=== PATIENT | female | born 1955 | race Caucasian/White ===

== ENCOUNTER → 2016-10-28 | Outpatient (CLI) | payer MEDICARE, OTHER ==
[~2016-10-28] MED LIST: ALBU18HF2 INH; ASPI-557 PO; CALC-732 PO; ENAL20TA PO; FENO54TA4 PO; FLUT1DIS5 ORAL INH; GABA300C PO; IPRA4AER PO; MINO50TA PO; MONT10TA22 PO; ONDA4TAB4 PO; ROSU40TA PO; TIOT18CA3 ORAL INH; TOPI25TA64 PO; TRIA1TAB93 PO
--- NOTE | 2016-10-28 09:12 | DI ---
Indication: ITS.REASON: J44.9 Chronic obstructive pulmonary disease, unspe; R52 RIB PAIN PROCEDURE: RIBS RIGHT: Encounter: Initial Comparison: None Findings/ Impression: No acute displaced rib fracture. Evidence of healed fractures involving the right fifth, sixth and seventh lateral ribs. .
--- NOTE | 2016-10-28 09:13 | DI ---
INDICATION: ITS.REASON: J44.9 Chronic obstructive pulmonary disease, unspe; R52 RIB PAIN PROCEDURE: CHEST 2-VIEWS UPRIGHT (PA \T\ LAT) Encounter: Initial COMPARISON: June 12, 2009 FINDINGS: Blunting of the right costophrenic angle, probably related pleural thickening. Evidence of hyperinflation and emphysema. No consolidative pneumonia, pleural effusion or pneumothorax. Cardiac silhouette is mildly enlarged but unchanged. Mediastinal contours are stable. Pulmonary vascularity appears normal. Lumbar spinal fusion hardware. Impression: Findings of COPD. No focal pneumonia. .
== END ==
LOC: IMA 08:30
PROVIDERS: ATTEND Physician Assistant
DX: J44.9 Chronic obstructive pulmonary disease, unspecified (principal); R07.81 Pleurodynia

== ENCOUNTER 2016-11-16 07:19 | Day surgery (SDC) | payer MEDICARE, OTHER ==
[~2016-11-16] VITALS: Ht 167.6 cm; Wt 107.3 kg
[2016-11-16] VITALS (28 sets, daily range): BP systolic 108–176; BP diastolic 59–111; PULSE 78–120; RESP 12–32; TEMP 96.9–97.8; O2SAT 89–95; Ht 167.6 cm; Wt 107.3 kg
[~2016-11-16 07:19] MED LIST changes: -ASPI-557 PO; -CALC-732 PO; -FENO54TA4 PO; +LIDOCAINE 1% (10mg/ml) 2ml SDV INJ ONE; +LR 1,000 ML IV SCH; -MINO50TA PO; -MONT10TA22 PO; +NORMAL SALINE 1,000 ML IV ONE; -ONDA4TAB4 PO; -ROSU40TA PO; -TIOT18CA3 ORAL INH
--- OUTSIDE RECORDS SUMMARY | 2016-11-16 07:23 | XMS REPORT | Referral Summary ---
Author Organization Unknown Address Unknown Phone Unavailable Care Team Providers Care Electric Refrigerator Servicer Name Role Phone Navjot Sampson JR Primary Care Physician [phone] Encounter [facility] [id number] Date(s): 07/23/14 - 07/23/14 [facility] [place] [id number] [place], [place] [address] Discharge Diagnosis: Ocular migraine Discharge Disposition: Home or Self Care Attending Physician: Trev Simeon MD Admitting Physician: Trev Simeon MD Vital Signs Most recent to 1 oldest [Reference Range]: Peripheral Pulse 88 bpm Rate [60-100 bpm] (07/23/14 9:41 AM) Blood Pressure 162/94 mmHg [90-140/60-90 mmHg] *HI* (07/23/14 9:41 AM) Problem List Condition Effective Dates Status Health Status Informant Allergic Active rhinitis(Confirmed) Benign essential Active hypertension (disorder)(Confirmed ) COPD (chronic Active obstructive pulmonary disease)(Confirmed) Renal cell Active cancer(Confirmed) Coronary artery Active disease(Confirmed) Peripheral Active neuropathy(Confirmed ) Hereditary and Active idiopathic peripheral neuropathy (disorder)(Confirmed ) Hyperlipidemia(Confi Active rmed) Migraine Active headache(Confirmed) Obesity(Confirmed) Active patient Osteopenia(Confirmed Active ) Pneumonia(Confirmed) 2009 Active Vitamin D deficiency Active (disorder)(Confirmed ) Allergies, Adverse Reactions, Alerts Substance Reaction Severity Status acetaminophen Active codeine Nausea Active iodine Active oxyCODONE Active penicillin Active sulfamethoxazole NAUSEA/VOMITTING Active Medications Advair Diskus 500 mcg-50 mcg inhalation powder 1 puffs, Inhalation, BID, 0 Refill(s) Start Date: 07/01/14 Status: Ordered aspirin 81 mg oral tablet 1 tabs, Oral, Daily, 0 Refill(s) Start Date: 07/01/14 Status: Ordered calcium gluconate 500 mg oral tablet 1 tabs, Oral, Daily, 0 Refill(s) Start Date: 07/01/14 Status: Ordered Combivent Respimat 1 puffs, Inhalation, QID, prn, 0 Refill(s) Start Date: 07/01/14 Status: Ordered Crestor 40 mg oral tablet 1 tabs, Oral, Daily, # 90 tabs, 0 Refill(s), Pharmacy: [facility], 1 tabs Oral Daily Start Date: 07/18/14 Status: Ordered enalapril 20 mg oral tablet 1 tabs, Oral, Daily, 0 Refill(s) Start Date: 07/01/14 Status: Ordered fenofibrate 54 mg oral tablet 1 tabs, Oral, Daily, # 30 tabs, 0 Refill(s), Pharmacy: [facility], 1 tabs Oral Daily Start Date: 07/18/14 Status: Ordered Maxzide-25 oral tablet 1 tabs, Oral, Daily, # 90 tabs, 1 Refill(s), Pharmacy: [place] [id number] Start Date: 07/01/14 Status: Ordered Neurontin 300 mg oral capsule 1 caps, Oral, TID, 0 Refill(s) Start Date: 07/01/14 Status: Ordered Singulair 10 mg oral tablet 1 tabs, Oral, qPM, 0 Refill(s) Start Date: 07/01/14 Status: Ordered Spiriva 18 mcg inhalation capsule 1 Each, Inhalation, Daily, use two inhalations of one capsule for each dose, # 30 Each, 0 Refill(s) Special Instructions: use two inhalations of one capsule for each dose Start Date: 07/01/14 Status: Ordered Ventolin HFA 90 mcg/inh inhalation aerosol 2 puffs, Inhalation, QID, # 3 Each, 1 Refill(s), Pharmacy: [facility], 2 puffs Inhalation QID Start Date: 07/01/14 Status: Ordered Zofran 4 mg oral tablet 1 tabs, Oral, q8hr, Nausea, # 30 tabs, 1 Refill(s), Pharmacy: [facility], 1 tabs Oral q8hr,PRN:Nausea Start Date: 07/01/14 Status: Ordered Results No data available for this section Immunizations Vaccine Date Refusal Reason tetanus/diphth/pertuss (Tdap) adult/adol 04/29/13 influenza virus vaccine, live 05/30/12 pneumococcal 13-valent conjugate vaccine 04/29/13 pneumococcal 23-polyvalent vaccine 07/21/00 Procedures Procedure Date Related Diagnosis Body Site Cholecystectomy H/O neck surgery H/O tubal ligation H/O: hysterectomy History of back surgery Social History Social History Type Response Smoking Status Current every day smoker; Type: Cigarettes; Type: E-Cigarette Assessment and Plan Extracted from: Title: Neurology initial Office Author: Trev Simeon MD Date: 07/23/14 Visit Note Assessment/Plan Ocular migraine Her symptoms are consistent with ocular migraines, however, epileptic seizures cannot be excluded I will start her on Topamax 25mg QHS x 1 week then 25mg BID and monitor for response. I educated her about side effects including kidney stones, somnolence, tingling in the hands and feet, and taste change. I will consider repeating EEG if no response and titrating Topamax up. If ineffective at higher doses (up to 100mg BID), I will consider other alternatives Time spent with the patient: 30min, >50% spent counseling the patient Return to clinic in4 months
--- OUTSIDE RECORDS SUMMARY | 2016-11-16 07:23 | XMS REPORT | Referral Summary ---
Author Author [facility] Organization [facility] Address Unknown Phone Unavailable Care Team Providers Care Geophysical Laboratory Supervisor Name Role Phone Jose Higgins Primary Care Physician [phone] Encounter [facility] Date(s): 03/18/15 - 03/18/15 [facility] [address] [place] [address] JARRED Henriquez [id number] Discharge Disposition: 01-Home or Self Care Attending Physician: Cristi Gaytan JR, MD Admitting Physician: Cristi Gaytan JR, MD Vital Signs No data available for this section Problem List Condition Effective Dates Status Health [...] Daily, # 90 tabs, 0 Refill(s), Pharmacy: [place] [address], 1 tabs Oral Daily Start Date: 07/18/14 Status: Ordered enalapril 20 mg oral tablet 1 tabs, Oral, Daily, 0 Refill(s) Start Date: 07/01/14 Status: Ordered fenofibrate 54 mg oral tablet 1 tabs, Oral, Daily, # 30 tabs, 0 Refill(s), Pharmacy: [place] [address], 1 tabs Oral Daily Start Date: 07/18/14 Status: Ordered Maxzide-25 oral tablet 1 tabs, Oral, Daily, # 90 tabs, 1 Refill(s), Pharmacy: [place] [address] Start Date: 07/01/14 Status: Ordered minocycline 50 mg oral tablet 1 tabs, Oral, Daily, refill x 2, # 30 tabs, 1 Refill(s), Pharmacy: [place] [address], 1 tabs Oral Daily,Instr:refill x 2 Start Date: 08/06/14 Stop Date: 11/04/14 Status: Ordered Neurontin 300 mg oral capsule 1 caps, Oral, TID, 0 Refill(s) Start Date: 07/01/14 Status: Ordered Singulair 10 mg oral tablet 1 tabs, Oral, qPM, 0 Refill(s) Start Date: 07/01/14 Status: Ordered Spiriva 18 mcg inhalation capsule 1 Each, Inhalation, Daily, use two inhalations of one capsule for each dose, # 30 Each, 0 Refill(s) Start Date: 07/01/14 Status: Ordered topiramate 25 mg oral tablet See Instructions, TAKE ONE TAB PO QAM, TAKE 2 TAB QHS, # 90 tabs, 2 Refill(s), Pharmacy: [facility], TAKE ONE TAB PO QAM, TAKE 2 TAB QHS Start Date: 09/19/14 Status: Ordered Ventolin HFA 90 mcg/inh inhalation aerosol 2 puffs, Inhalation, QID, # 3 Each, 1 Refill(s), Pharmacy: [place] [address], 2 puffs Inhalation QID Start Date: 07/01/14 Status: Ordered Zofran 4 mg oral tablet 1 tabs, Oral, q8hr, Nausea, # 30 tabs, 1 Refill(s), Pharmacy: [facility], 1 tabs Oral q8hr,PRN:Nausea Start Date: 07/01/14 Status: Ordered Results No data available for this section Immunizations Vaccine Date Refusal Reason tetanus/diphth/pertuss (Tdap) adult/adol 04/29/13 influenza virus vaccine, live 05/30/12 pneumococcal 23-polyvalent vaccine 04/29/13 pneumococcal 23-polyvalent vaccine 07/21/00 Procedures Procedure Date Related Diagnosis Body Site Cystourethroscopy, with dilation of bladder 03/18/15 for interstitial cystitis; local anesthesia.. Cholecystectomy H/O neck surgery H/O tubal ligation H/O: hysterectomy History of back surgery Social History Social History Type Response Smoking Status Current every day smoker; Type: Cigarettes; Type: E-Cigarette Assessment and Plan No data available for this section
--- OUTSIDE RECORDS SUMMARY | 2016-11-16 07:23 | XMS REPORT | Referral Summary ---
Author Author [facility] Organization [facility] Address Unknown Phone Unavailable Care Team Providers Care Pen Ruler Operator Name Role Phone Jose Higgins Primary Care Physician [phone] Encounter [facility] Date(s): 03/06/15 - 03/06/15 [facility] [address] [place] [address] JARRED Henriquez [id number] Discharge Diagnosis: Personal history of renal cancer Discharge Disposition: 01-Home or Self Care Attending Physician: Cristi Gaytan JR, MD Admitting Physician: Cristi Gaytan JR, MD Referring Physician: Jose Higgins MD Vital Signs Most recent to 1 oldest [Reference Range]: Peripheral Pulse 90 bpm Rate [60-100 bpm] (03/06/15 2:04 PM) Blood Pressure 140/88 mmHg [90-140/60-90 mmHg] (03/06/15 2:04 PM) Problem List Condition Effective Dates Status Health [...] Daily, # 90 tabs, 0 Refill(s), Pharmacy: [place] [address], 1 tabs Oral Daily Start Date: 07/18/14 Status: Ordered enalapril 20 mg oral tablet 1 tabs, Oral, Daily, 0 Refill(s) Start Date: 07/01/14 Status: Ordered fenofibrate 54 mg oral tablet 1 tabs, Oral, Daily, # 30 tabs, 0 Refill(s), Pharmacy: [place] [address], 1 tabs Oral Daily Start Date: 07/18/14 Status: Ordered Maxzide-25 oral tablet 1 tabs, Oral, Daily, # 90 tabs, 1 Refill(s), Pharmacy: [place] [address] Start Date: 07/01/14 Status: Ordered minocycline 50 mg oral tablet 1 tabs, Oral, Daily, refill x 2, # 30 tabs, 1 Refill(s), Pharmacy: [place] [address], 1 tabs Oral Daily,Instr:refill x 2 Start [...] QHS, # 90 tabs, 2 Refill(s), Pharmacy: [place] [address], TAKE ONE TAB PO QAM, TAKE 2 TAB QHS Start Date: 09/19/14 Status: Ordered Ventolin HFA 90 mcg/inh inhalation aerosol 2 puffs, Inhalation, QID, # 3 Each, 1 Refill(s), Pharmacy: [facility], 2 puffs Inhalation QID Start Date: 07/01/14 Status: Ordered Zofran 4 mg oral tablet 1 tabs, Oral, q8hr, Nausea, # 30 tabs, 1 Refill(s), Pharmacy: [facility], 1 tabs Oral q8hr,PRN:Nausea Start [...] E-Cigarette Assessment and Plan Extracted from: Title: Ambulatory Patient Education Author: Cristi Gaytan JR, MD Date : 03/06/15 Follow Up With: Where: When: Jose Higgins [address] [address] Business (1) Within 3 to 5 days Comments: Follow Up With: Where: When: Cristi Gaytan [address] [place] [address] Drive; [place] [address] Business (1) In 5 days 03/11/2015 Comments: Extracted from: Title: Office Visit Note Author: Cristi Gaytan JR, MD Date: 03/06/15 Assessment/Plan Personal history of renal cancer status post left partial neck nephrectomy for renal cell cancer. On and off gross and microscopic hematuria. I ordered a CAT scan of abdomen and pelvis without contrast, because the patient's be allergic to the contrast media. Recheck in my office after this x-rays are done. Will scheduled for cystoscopy possible bladder biopsy because of the history of recurrent gross and microhematuria. Patient instructed to stop 's smoking because of history of left renal cancer. Marginal function on the right kidney Ordered: Office Visit Level 4 Est 21982 Orders: CT Abdomen Pelvis w/o Contrast
--- OUTSIDE RECORDS SUMMARY | 2016-11-16 07:23 | XMS REPORT | Continuity of Care Document ---
Author Author Kylah DOTSON, [facility] Address [address] [place] [address] Phone Care Team Providers Care Receivable Clerk Name Role Phone Dami Sampson PP Unavailable Payers Payer name Insurance type Covered constitution party ID Authorization(s) Unknown Problems Condition Effective Dates (start - stop) Clinical Status GROSS HEMATURIA - New onset Personal history of malignant neoplasm of kidney - *Controlled Lumbago - Intermittent COPD - Acute Exacerbation Hypertension, Benign - *Chronic Other and unspecified hyperlipidemia - *Chronic Hypoxia - *Acute Pneumonitis - *Acute Vitamin d deficiency - *Routine Renal cell cancer - Remission Peripheral neuropathy - *Chronic COPD - Acute Exacerbation Hypoxemia - *Resolved Pneumonia - Improved Influenza Vaccine - COPD - *Chronic Hypertension, Benign - *Chronic Other and unspecified hyperlipidemia - *Chronic Pneumonia - Improved Unspecified vitamin d deficiency - *Chronic Diabetes type 2, controlled - *Chronic Mucopurulent chronic bronchitis - Persistent COPD (chronic obstructive pulmonary disease) - Moderate Tobacco abuse - *Chronic Weight gain - Persistent Hypertension - *Chronic Personal history of venous thrombosis and embolism - Inactive COPD - *Chronic Hypertension, Benign - *Chronic Other and unspecified hyperlipidemia - *Chronic Unspecified idiopathic peripheral neuropathy - *Chronic Unspecified vitamin d deficiency - *Chronic Diabetes Mellitus Type 2, Uncomplicated - *Chronic Lateral epicondylitis - *Acute Sinusitis - *Acute Radiculitis, Thoracic or Lumbar - *Chronic Pre-operative examination, unspecified - *Routine COPD - *Chronic Hypertension, Benign - *Chronic Diabetes Mellitus Type 2, Uncomplicated - *Chronic COPD - Chronic Hypertension, Benign - Chronic Diabetes Mellitus Type 2, Uncomplicated - Chronic Other and unspecified hyperlipidemia - *Chronic Other and unspecified hyperlipidemia - Chronic HYPERLIPIDEMIA NEC/NOS - BENIGN HYPERTENSION - 496 - CHR AIRWAY OBSTRUCT NEC - Lumbar radiculopathy - *Worse Neck pain - *Worse Arm weakness - Episodic Mass of soft tissue - *Worse Family History Family Member Diagnosis Age At Onset Status aunt (Unknown) CAD Yes Brother (Unknown) CVA (Stroke) Yes uncle (Unknown) CAD Yes Sister (Unknown) CAD Yes Mother (Unknown) heart Transplant Yes Social History Social History Element Description Quantity Unknown Allergies, Adverse Reactions, Alerts Substance Reaction Severity Status IODINE Unknown PENICILLINS Unknown PROPOXYPHENE HCL Unknown ACETAMINOPHEN Unknown OXYCODONE HCL Unknown SULFA (SULFONAMIDE ANTIBIOTICS) NAUSEA/VOMITTING Unknown CODEINE Nausea Unknown Medications Medication Instructions Dosage Effective Dates (start - stop) Status Calcium 500 + D 500 mg (1,250 mg)-400 unit tablet take 1 by Oral route every day 0 - Active Crestor 20 mg tablet take 1 tablet (20MG) by oral route every day 20 MG - Active enalapril maleate 20 mg tablet take 1 tablet (20MG) by oral route every day 20 MG - Active Neurontin 300 mg capsule take 1 capsule (300MG) by oral route 3 times every day as needed - Active Drisdol 50,000 unit capsule take 1 capsule ([id number]) by oral route twice weekly - Active bupropion HCl SR 150 mg tablet,sustained-release take 1 tablet (150MG) by oral route 2 times every day 150 MG - Active aspirin 81 mg chewable tablet ON HOLD FROM DR ANTHONY - Active cyclobenzaprine 10 mg tablet take 0.5 - 1 Tablet (5MG) by oral route 3 times every day as needed for muscle spasm 5 MG - Active Zofran 4 mg tablet take 1 Tablet (4MG) by oral route every 6 hours PRN 4 MG - Active Ventolin HFA 90 mcg/actuation aerosol inhaler inhale 2 puff by inhalation route every 4 - 6 hours as needed 0 - Active Advair Diskus 500 mcg-50 mcg/dose powder for inhalation inhale 1 puff by inhalation route 2 times every day in the morning and evening approximately 12 hours apart 0 - Active Maxzide-25mg 37.5 mg-25 mg tablet take 1 tablet by oral route every day 0 - Active Immunizations Vaccine Date Status Comments Flu (split) (3 yrs or older) completed Tdap (Boostrix r) completed Pneumo (2 yrs or older)(PPV) completed pneumo (2 yrs or older) (PPV23) completed - Completed reason: source unspecified Results Test Name Date and Time Measure Units Reference Range Abnormal Flag Comments Panel Description: Creatinine Creatinine 15:49:00 0.91 mg/dL 0.57-1.11 Testing performed at [facility] [address] [address] [employer] Jeremy Leary MD Panel Description: Creatinine Creatinine 15:49:00 0.91 mg/dL 0.57-1.11 Testing performed at [facility] [address] [facility] [address] [employer] Jeremy Leary MD Panel Description: EGFR-AMS eGFR 15:49:00 >60 mL/min >60 Multiply eGFR results by 1.21 for race.Testing performed at [facility] [address] [address] [employer] Jeremy Leary MD Panel Description: EGFR-AMS eGFR 15:49:00 >60 mL/min >60 Multiply eGFR results by 1.21 for race.Testing performed at [facility] [address] [facility] [address] [employer] Jeremy Leary MD Vital Signs Date / Time: Height Weight Pulse Rate Blood Pressure Temperature /14:37:00 66.00 in 228.00 lbs 136/78 mm[Hg] Procedures Procedure Date Unknown Encounters Encounter Location Date Patient Visit [facility] Patient [facility] Patient Visit [facility] Patient Visit [facility] Patient Visit Patient Visit [facility] Advance Directives Directive Effective Date Unknown
--- OUTSIDE RECORDS SUMMARY | 2016-11-16 07:23 | XMS REPORT | Continuity of Care Document ---
Author Author [facility] Organization [facility] Address Unknown Phone Unavailable Allergies Medications Problems Date Dx Coded Attending Type Code Diagnosis Diagnosed By 06/27/2013 Lionel Madden MD 272.4 HYPERLIPIDEMIA NEC/NOS 06/27/2013 Lionel Madden MD 305.1 TOBACCO USE DISORDER 06/27/2013 Lionel Madden MD 401.9 HYPERTENSION NOS 06/27/2013 Lionel Madden MD 496 CHR AIRWAY OBSTRUCT NEC 06/27/2013 Lionel Madden MD 721.3 LUMBOSACRAL SPONDYLOSIS 06/27/2013 Lionel Madden MD 724.2 LUMBAGO 06/27/2013 Lionel Madden MD V10.52 HX OF KIDNEY MALIGNANCY 06/27/2013 Lionel Madden MD F V12.55 PERSONAL HISTORY OF PULMONARY EMBOLISM 06/27/2013 Lionel Madden MD V14.0 HX-PENICILLIN ALLERGY 06/27/2013 Lionel Madden MD V14.2 HX-SULFONAMIDES ALLERGY 06/27/2013 Lionel Madden MD V14.5 HX-NARCOTIC ALLERGY Procedures Code Description Performed By Performed On 81.07 LUMBAR LUMBOSACRAL FUSION OF POSTERIOR COL/TECHN Lionel Madden MD 06/27/2013 81.08 LUMBAR LUMBOSACRAL FUSION OF ANTERIOR COL/TECHNI Lionel Madden MD 06/27/2013 81.62 FUSION/REFUS OF 2-3 VERTEBRAE Lionel Madden MD 06/27/2013 84.51 INSERTION OF INTERBODY SPINAL FUSION DEVICE Lionel Madden MD 06/27/2013 Results Test Result Range POTASSIUM - 06/27/13 06:31 POTASSIUM 4.2 mmol/L 3.5-5.3 URINALYSIS, ROUTINE - 06/27/13 10:05 UA LEUKOCYTE ESTERASE DIPSTICK NEGATIVE NEGATIVE UA NITRITE DIPSTICK NEGATIVE NEGATIVE UA PROTEIN DIPSTICK NEGATIVE NEGATIVE UA GLUCOSE DIPSTICK NEGATIVE NEGATIVE UA KETONE DIPSTICK TRACE NEGATIVE UA UROBILINOGEN DIPSTICK NORMAL NORMAL UA BILIRUBIN DIPSTICK NEGATIVE NEGATIVE UA BLOOD DIPSTICK NEGATIVE NEGATIVE UA VOLUME FOR EXAM 12.0 mL (12mL STD) UA SPECIFIC GRAVITY 1.028 1.015-1.025 UR PH 5.0 5.0-7.0 GLUCOSE (POC) - 06/27/13 20:26 GLUCOSE (POC) 158 mg/dL 70-99 URINALYSIS, ROUTINE - 06/27/13 20:40 UA LEUKOCYTE ESTERASE DIPSTICK NEGATIVE NEGATIVE UA NITRITE DIPSTICK NEGATIVE NEGATIVE UA PROTEIN DIPSTICK NEGATIVE NEGATIVE UA GLUCOSE DIPSTICK NEGATIVE NEGATIVE UA KETONE DIPSTICK NEGATIVE NEGATIVE UA UROBILINOGEN DIPSTICK NORMAL NORMAL UA BILIRUBIN DIPSTICK NEGATIVE NEGATIVE UA BLOOD DIPSTICK TRACE NEGATIVE UA RBC 3-5 rbc/hpf 0 - 3 UA VOLUME FOR EXAM 12.0 mL (12mL STD) UA SPECIFIC GRAVITY 1.020 1.015-1.025 UR PH 5.0 5.0-7.0 GLUCOSE (POC) - 06/28/13 06:21 GLUCOSE (POC) 163 mg/dL 70-99 CBC - 06/28/13 06:22 MEAN CELL HGB 29.9 pg 27.0-33.0 MEAN CELL HGB CONCENTRATION 32.6 g/dL 32.0-37.0 MEAN CELL VOLUME 91.6 fl 80.0-100.0 RED BLOOD CELL 4.18 m/cumm 4.00-6.00 RED CELL DISTRIBUTION WIDTH 13.0 % 11.0- 15.6 WHITE BLOOD CELL 16.2 k/cumm 5.0-10.0 HEMOGLOBIN 12.5 gm/dL 12.0-16.0 HEMATOCRIT 38.3 % 37.0-47.0 PLATELET COUNT 199 k/cumm 150-400 METABOLIC PANEL, COMPREHN - 06/28/13 06:22 POTASSIUM 4.1 mmol/L 3.5-5.3 EST GFR (MDRD) > 60 mL/min > 59 ANION GAP 8 mmol/L 5-15 EST CrCl (CG) > 60 mL/min > 59 GLUCOSE 153 mg/dL 70-99 CALCIUM 8.7 mg/dL 8.5-10.1 BLOOD UREA NITROGEN 16 mg/dL 7-20 CREATININE 0.9 mg/dL 0.6-1.0 SODIUM 138 mmol/L 135-148 CHLORIDE 105 mmol/L 98-110 AST/SGOT 32 Units/L 10-37 ALT/SGPT 24 Units/L < 66 CARBON DIOXIDE 25 mmol/L 21-32 TOTAL PROTEIN 6.9 gm/dL 6.4-8.2 ALBUMIN 3.4 gm/dL 3.4-5.0 BILI TOTAL 0.4 mg/dL 0.0-1.0 ALKALINE PHOSPHATASE TOTAL 109 IU/L 45- 117 GLUCOSE (POC) - 06/28/13 10:19 GLUCOSE (POC) 210 mg/dL 70-99 GLUCOSE (POC) - 06/28/13 15:27 GLUCOSE (POC) 236 mg/dL 70-99 GLUCOSE (POC) - 06/28/13 21:28 GLUCOSE (POC) 160 mg/dL 70-99 GLUCOSE (POC) - 06/29/13 06:26 GLUCOSE (POC) 138 mg/dL 70-99 GLUCOSE (POC) - 06/29/13 10:26 GLUCOSE (POC) 120 mg/dL 70-99 Encounters ACCT No. Visit Date/Time Discharge Status Pt. Type Provider Facility Loc./Unit Complaint [id number] 06/27/2013 06:08:00 2012 12:03:00 DIS Inpatient Maryanne DOTSON, [facility] W.9TN
--- OUTSIDE RECORDS SUMMARY | 2016-11-16 07:23 | XMS REPORT | CCD ---
Author Author RADHA MARINELLI Organization Unknown Address [address], [place] [id number] Phone 0 Care Team Providers Care Insurance Commissioner Name Role Phone Maryana ELIZONDO Attending Physician [phone] Vital Signs Unknown or Not Available. Allergies Unknown or Not Available. Procedures Unknown or Not Available. History of Immunizations Unknown or Not Available. Problems Unknown or Not Available. Results Unknown or Not Available. Active Medications Unknown or Not Available. Medications Administered During Visit Unknown or Not Available. Encounters Encounter Diagnosis Diagnosis Code Start Date PHYSICAL THERAPY NEC V571 10/27/2014 Social History Smoking Status Code Start Date End Date Current every day smoker [id number] Patient Decision Aids Unknown or Not Available. Discharge Instructions You were admitted to [facility] on 10/27/2014 with a principal diagnosis of PHYSICAL THERAPY NEC. Should you have any questions prior to discharge, please contact a member of your healthcare team. If you have left the hospital and have any questions, please contact your primary care physician. Chief Complaint and Reason For Visit Unknown or Not Available. Function Status Unknown or Not Available. Plan of Care Unknown or Not Available. Referral/Transition of Care Unknown or Not Available.
--- OUTSIDE RECORDS SUMMARY | 2016-11-16 07:23 | XMS REPORT | Continuity of Care Document ---
Author Author Hardy Barber MA Ambulatory Address Unknown Phone Unavailable Care Team Providers Care Competitive Intelligence Analyst Name Role Phone Dami Sampson PP Unavailable Payers Payer name Insurance type Covered green party ID Authorization(s) Unknown Problems Condition Effective Dates (start - stop) Clinical Status Radiculitis, Thoracic or Lumbar - *Chronic Pre-operative examination, unspecified - *Routine COPD - *Chronic Hypertension, Benign - *Chronic Diabetes Mellitus Type 2, Uncomplicated - *Chronic COPD - Chronic Hypertension, Benign - Chronic Diabetes Mellitus Type 2, Uncomplicated - Chronic Other and unspecified hyperlipidemia - *Chronic Other and unspecified hyperlipidemia - Chronic COPD - Acute Exacerbation Hypertension, Benign - [...] *Chronic Diabetes type 2, controlled - *Chronic COPD - *Chronic Hypertension, Benign - *Chronic Other and unspecified hyperlipidemia - *Chronic Unspecified idiopathic peripheral neuropathy - *Chronic Unspecified vitamin d deficiency - *Chronic Diabetes Mellitus Type 2, Uncomplicated - *Chronic Lateral epicondylitis - *Acute Sinusitis - *Acute Mucopurulent chronic bronchitis - Persistent COPD (chronic obstructive pulmonary disease) - Moderate Tobacco abuse - *Chronic Weight gain - Persistent Hypertension - *Chronic Personal history of venous thrombosis and embolism - Inactive HYPERLIPIDEMIA NEC/NOS - BENIGN HYPERTENSION - 496 [...] Dosage Effective Dates (start - stop) Status aspirin 81 mg chewable tablet chew 1 tablet (81MG) by oral route every day 81 MG - Active Ventolin HFA 90 mcg/actuation Aerosol Inhaler inhale 2 puff by inhalation route every 4 - 6 hours as needed 0 - Active Calcium 500 + D 500 mg (1,250 [...] times every day as needed - Active naproxen 500 mg tablet take 1 tablet (500MG) by oral route 2 times every day with food 500 MG - Active Maxzide-25mg 37.5 mg-25 mg tablet take 1 tablet by oral route every day 0 - Active Advair Diskus 500 mcg-50 mcg/dose powder for inhalation inhale 1 puff by inhalation route 2 times every day in the morning and evening approximately 12 hours apart 0 - Active Drisdol 50,000 unit capsule take 1 capsule ([id number]) by oral route twice weekly - Active bupropion HCl SR 150 mg tablet,sustained-release take 1 tablet (150MG) by oral route 2 times every day 150 MG - Active Immunizations Vaccine Date Status Comments Tdap (Boostrix r) completed Pneumo (2 yrs or older)(PPV) completed Flu (split) (3 yrs or older) completed pneumo (2 yrs or older) (PPV23) completed - Completed reason: source unspecified Results Test Name Date and Time Measure Units Reference Range Abnormal Flag Comments Panel Description: CBC WBC 10:54:00 9.0 K/uL 4.8-10.8 RBC 10:54:00 4.72 M/uL 4.00-5.20 HGB 10:54:00 14.4 g/dl 12.0-16.0 HCT 10:54:00 42.3 % 37.0-47.0 MCV 10:54:00 89.6 fL 82.0-99.0 MCH 10:54:00 30.5 pg 27.0-32.0 MCHC 10:54:00 34.0 g/dL 32.0-36.0 RDW 10:54:00 13.2 % 11.5-14.5 MPV 10:54:00 10.5 fL 8.8-14.8 Platelet Count 10:54:00 221 K/uL 150-400 Immature Granulocytes 10:54:00 0.3 % 0.0-1.0 Absolute Neutrophils 10:54:00 6.02 THOUS 1.90-7.00 Absolute Lymphocytes 10:54:00 2.17 THOUS 0.80-3.30 Absolute Monocytes 10:54:00 0.65 THOUS 0.30-1.00 Absolute Eosinophils 10:54:00 0.09 THOUS 0.00-0.50 Absolute Basophils 10:54:00 0.03 THOUS 0.00-0.20 Neutrophils 10:54:00 67 % 51-75 Lymphocytes 10:54:00 24 % 20-46 Monocytes 10:54:00 7 % 4-11 Eosinophils 10:54:00 1 % 0-4 Basophils 10:54:00 0 % 0-2 Testing performed at [facility] Reference Lab [address] [place] [address] Iv Therapy Nurse Jeremy Leary MD Panel Description: Hxegobsggwul-NO-Xphcgi Urine-[facility] Albumin Random Urine 10:54:00 <0.5 mg/dL 0.0-1.7 Testing performed at [facility] Reference [facility] [address] [place] [address] Iv Therapy Nurse Jeremy Leary MD Panel Description: Protime Pt Type 10:54:00 BASIC Drug 10:54:00 No Meds Date-Time Last Meds 10:54:00 04/29/2013 10:46AM Protime-INR 10:54:00 1.0 Units Normal INR(no anticoagulant) 0.8-1.2 UnitsAbnormal INR (no anticoagulant) >1.2 UnitsRoutine Therapeutic INR 2.0-3.0 UnitsTherapeutic (High-Risk) INR 2.5-3.5 Units Panel Description: Hemoglobin P2p-ORP Hemoglobin A1C 10:54:00 5.5 % 4.1-5.6 Testing performed at [facility] Reference [facility] [address] [place] [address] Iv Therapy Nurse Jeremy Leary MD Panel Description: EAG Calculation-[facility] Estimated Average Glucose 10:54:00 111.2 mg/dL Testing performed at [facility] Reference Lab [address] [place] [address] Iv Therapy Nurse Jeremy Leary MD Panel Description: Chemistry Profile Glucose 10:54:00 98 mg/dL 70-99 BUN 10:54:00 16 mg/dL 10-20 Creatinine 10:54:00 0.82 mg/dL 0.57-1.11 Calcium 10:54:00 9.3 mg/dL 8.9-10.5 Sodium 10:54:00 142 mEq/L 135-144 Potassium 10:54:00 3.9 mEq/L 3.5-5.2 Chloride 10:54:00 107 mEq/L 99-111 CO2 10:54:00 24 mEq/L 22-31 Albumin 10:54:00 4.3 g/dL 3.5-5.0 Bilirubin Total 10:54:00 0.1 mg/dL 0.2-1.2 L Alkaline Phosphatase 10:54:00 131 U/L 40-150 Protein 10:54:00 7.1 g/dL 6.4-8.3 ALT (SGPT) 10:54:00 14 U/L 0-55 AST (SGOT) 10:54:00 12 U/L 5-34 Anion Gap 10:54:00 11 3-20 Globulin 10:54:00 2.8 g/dL 1.8-4.0 Testing performed at [facility] Reference Lab [address] [facility] [address] Iv Therapy Nurse Jeremy Leary MD Panel Description: Lipid Profile-[facility] Cholesterol 10:54:00 253 mg/dL 0-199 H Triglycerides 10:54:00 458 mg/dL 0-149 H HDL Cholesterol 10:54:00 39 mg/dL 40-84 L LDL Cholesterol 10:54:00 INVALID mg/dL 0-130 VLDL Cholesterol 10:54:00 INVALID mg/dL 0-28 Cardiac Risk 10:54:00 6.5 0.0-5.0 H Testing performed at [facility] Reference [facility] [address] [place] [address] Iv Therapy Nurse Jeremy Leary MD Panel Description: Non-HDL Cholesterol-[facility] Non-HDL Cholesterol 10:54:00 214 mg/dL 0-159 H Testing performed at [facility] Reference [facility] [address] [place] [address] Iv Therapy Nurse Jeremy Leary MD Panel Description: EGFR-[facility] eGFR 10:54:00 >60 mL/min >60 Multiply eGFR results by 1.21 for race.Testing performed at [facility] Reference [facility] [address] [place] [address] Iv Therapy Nurse Jeremy Leary MD Panel Description: Urinalysis with Reflex Microscopic Appearance 10:54:00 Clear Color 10:54:00 Yellow Glucose, Urine 10:54:00 Negative Negative Ketones 10:54:00 Negative Negative Blood 10:54:00 Negative Negative Protein 10:54:00 Negative Negative Nitrites 10:54:00 Negative Negative Bilirubin 10:54:00 Negative Negative Specific [place] 10:54:00 1.018 1.003-1.03 pH 10:54:00 7.0 5.0-8.0 Urobilinogen 10:54:00 0.2 mg/dL <1.0 Leukocyte Esterase 10:54:00 Pos 1+ Negative A Testing performed at [facility] Reference [facility] [address] [place] [address] Iv Therapy Nurse Jeremy Leary MD Panel Description: Urinalysis-Microscopic WBC, Urine 10:54:00 2-5 /HPF 0-4 Epithelial Cells 10:54:00 2-5 /HPF Bacteria 10:54:00 Rare Microscop. Exam Perf. 10:54:00 performed Testing performed at [facility] Reference Lab [address] [place] [address] Iv Therapy Nurse Jeremy Leary MD Vital Signs Date / Time: Height Weight Pulse Rate Blood Pressure Temperature /09:16:00 64.60 in 228.80 lbs 76 /min 138/82 mm[Hg] 97.6 F Procedures Procedure Date Unknown Encounters Encounter Location Date Patient Visit [facility] Patient Visit [facility] Patient Visit [facility] Patient Visit [facility] Patient Visit [facility] Patient Visit [facility] Patient Visit [facility] Patient Visit Conversion Patient Visit [facility] Patient Visit Patient Visit [facility] Advance Directives Directive Effective Date Unknown
[2016-11-16] MEDS ORDERED: CLINDAMYCIN 600mg IVPB 50 ML IV ONE (08:00)
[2016-11-16 08:09] LABS: BASOPHILS % (AUTO) 0.3 % (0-2); EOSINOPHILS # (AUTO) 0.2 T/MM3 (0-0.5); EOSINOPHILS % (AUTO) 1.8 % (0-4); HGB - HEMOGLOBIN 15.1 GM/DL (12-16); IMMATURE GRANULOCYTE # (AUTO) 0.04 T/MM3 (0.00-0.03); IMMATURE GRANULOCYTE % (AUTO) 0.5 % (0.0-0.5); LYMPHOCYTES # (AUTO) 1.9 T/MM3 (1-4.8); LYMPHOCYTES % (AUTO) 22.4 % (23-45); MEAN CORPUSCULAR HGB 30.1 UUG (26-34); MEAN CORPUSCULAR HGB CONC(MCHC 32.8 GM/DL (31-37); MEAN CORPUSCULAR VOLUME 91.8 UM3 (80-100); MEAN PLATELET VOLUME 9.7 UM3 (9.4-12.4); MONOCYTES # (AUTO) 0.5 T/MM3 (0-0.8); MONOCYTES % (AUTO) 6.2 % (0-9.0); NEUTROPHILS % (AUTO) 68.8 % (33-66); RED BLOOD COUNT 5.01 M/MM3 (4.00-5.20); WBC - WHITE BLOOD COUNT 8.7 T/MM3 (4.5-11.0)
--- NOTE | 2016-11-16 08:53 | ANESPREOP ---
Anesthesia Record Date and Time DATE: 11/16/16 TIME: 08:30 Proposed Surgical Procedure LEFT SHOULDER DIAGNOSTIC Allergies: Coded Allergies: Soap (Verified Allergy, Severe, BALLOON UP, 11/16/16) povidone-iodine (Verified Allergy, Severe, BALLOON UP, 11/16/16) Iodine and Iodide Containing Produc (Verified Allergy, Intermediate, SWELLING, 11/16/16) Penicillins (Verified Allergy, Intermediate, HIVES, 11/16/16) codeine (Unverified Allergy, Unknown, 11/16/16) Sulfa (Sulfonamide Antibiotics) (Verified Adverse Reaction, Mild, NAUSEA, VOMITING, 11/16/16) ibuprofen (Verified Adverse Reaction, Mild, NAUSEA,VOMITING, 11/16/16) Ht/Wt/BMI Height: 5 ' 6.00 " Weight: 107.300 kg BMI: 38.2 kg/m2 Vital Signs Date Time Temp Pulse Resp B/P Pulse Ox O2 Delivery O2 Flow Rate FiO2 11/16/16 07:35 97.8 84 20 143/71 93 Room Air Medications Inpatient Medications Current Medications Medications (Trade) Dose Ordered Sig/Neva Start Time Stop Time Status Last Admin Dose Admin Lactated Ringer's (Lactated Ringers) 1,000 ml @ 50 mls/hr Q20H 11/16/16 07:00 11/16/16 07:00 DC Albuterol Sulfate (Ventolin HFA 90 mcg/actuation) 18 Gm Hfa.aer.ad, 2 PUFF INH QID, (Reported) Last Taken: on 11/15/162199 Enalapril Maleate (Enalapril Maleate) 20 Mg Tablet, 1 TAB PO DAILY, (Reported) Last Taken: on 11/15/162199 Fluticasone/Salmeterol (Advair 500-50 Diskus) 1 Disk W/Dev Disk.w.dev, 1 PUFF ORAL INH RTBID, (Reported) Last Taken: on 11/15/162199 Gabapentin (Neurontin) 300 Mg Capsule, 1 TAB PO DAILY, (Reported) Last Taken: on 11/15/162199 Ipratropium/Albuterol Sulfate (Combivent Respimat Inhal [place]) 120 Puff/4 Gm Inha, 1 PUFF PO QID PRN for SHORTNESS OF AIR /WHEEZING, (Reported) Last Taken: on Unknown Date & Time Topiramate (Topiramate) 25 Mg Tablet, 50 MG PO BID, (Reported) Take 2 (25 mg) tablets, by mouth, AT HS Last Taken: on 11/15/162199 Triamterene/Hydrochlorothiazid (Maxzide 37.5 mg- 25 mg Tablet) 1 Each Tablet, 1 TAB PO DAILY, (Reported) Last Taken: on 11/15/162199 Currently on Beta Joseph: No Medical/Surgical History Anesthesia PMH: Reports: *Hypertension, Anesthesia Reactions (NO AIRWAY ISSUES / HAD A TRACH IN PAST, N&V), Arthritis, COPD (AFTER INHALING POWDER FROM AIR BAGS), Cancer ( HX RENAL), Deep Vein Thrombosis (LEG YRS AGO-HAD IVF FILTER IN THE S), Pneumonia (HX), Renal Disease (CANCER HX OF,PAIN IN THAT AREA), Denies: *Angina, *Diabetes, *Dyspnea, *FL, Asthma, Blood Transfusion Reac ( UNSURE), CHF, CVA/Stroke/TIA, Clotting Problems (CANNOT TAKE BLOOD THINNERS), Glaucoma, Hepatitis, Hiatal Hernia, Malignant Hyperthermia, Reflux, Rheumatic Fever, Seizures, Sleep Apnea, Thyroid Disease, Tuberculosis Smoking Status: Current every day smoker Has pt. smoked today?: No Substance Use Type: does not use HX of Last Menstrual Period: COMPLETE HYST. Past Surgical History Orthopedic Surgeries: Yes - BACK SURGERY RIGHT ANKLE,FOOT,LEG PINS AND SCREWS, NECK FUSION Abdominal Surgeries: Yes - LAP MARTHA Genitourinary Surgeries: Cardiac Surgeries: Yes - IVF FILTER Endocrine Surgeries: Reproductive Surgeries: Yes - LAP TUBAL,HYSTERECTOMY Neurological Surgeries: Ear Surgeries: Nose Surgeries: Throat Surgeries: Yes - HX TRACH PLACEMENT Other Surgeries: Yes - C SCOPE Anesthesia Adverse Reactions: FOUND nausea and vomiting Family Hx of Anesthesia Advers: none Hx of Motion Sickness: No Pertinent Findings Laboratory Tests 11/16/16 07:47 Physical Exam Respiratory: Lungs clear, Wheezing (right) Cardiovascular: FOUND Regular rate, rhythm Airway Assessment Mallampati Score: II TMD: 3 Fingerbreadths Neck Extension: Fair Teeth: Upper Dentures, Lower Dentures Overall Assessment: May Be Diff Mask Vent., May Be Diff Intubation ASA: 3 Plan Anesthesia Plan: GETA Peripheral Nerve Block: Interscalene Block - LT Discussion Discussed risks/options/alternatives of anesthesia and questions answered. Patient consents. Nursing pain assessment noted. Present: Spouse Attestation Statement Prior to the delivery of any anesthetic medication, I examined the patient, developed the plan, obtained the patient's consent and discussed the risk and benefits of the procedure with the patient/guardian. JUDI TERESA CRNA November 16, 2016 08:53
[2016-11-16] MEDS ORDERED: MIDAZOLAM 2mg/2ml INJECTION IV PRN (09:00)
--- NOTE | 2016-11-16 09:14 | ANESPD ---
Peripheral Nerve Blockade Physician: Harsh Denis MD Date: 11/16/16 Surgical Procedure: L Shoulder Arthroscopy Discussion Discussed risks/options/alternatives of anesthesia and questions answered. Patient consents. Nursing pain assessment noted. Block Start: 08:53 Block Stop: 09:07 Block Employed: [employer] Indication: post-operative pain Approach: left side confirmed Position: semi-bravo Patient: Consent Monitors: EKG, SpO2, NIBP IV Sedation: Yes Sedation: Awake Midazolam (mg): 1 Initial Vital Signs First Documented Vital Signs Date Time Temp Pulse Resp B/P Pulse Ox O2 Delivery O2 Flow Rate FiO2 11/16/16 07:35 97.8 84 20 143/71 93 Room Air Post Vital Signs Vital Signs Date Time Temp Pulse Resp B/P Pulse Ox O2 Delivery O2 Flow Rate FiO2 11/16/16 08:55 14 11/16/16 07:35 97.8 84 143/71 93 Room Air Initial Pain Score: 7 Prep: chlorhexadine/ETOH Ultrasound Used?: Yes Nerve Simulator mA set at: 0.6 Abates at (mA): 0.4 Needle Depth: 1 Muscle Response: Yes Parathesia/Pain: none Injectate Ropivacaine (%): 0.5 Ropivacaine (mL): 20 Was Epi 1:200,000 Used?: No Injection Injection made incrementally with constant monitoring and aspiration every [] ml. KIM KOO November 16, 2016 09:13
[2016-11-16] MEDS ORDERED: PROPOFOL 200mg 20 ML IV ONE (09:20)
[2016-11-16] MEDS ORDERED: ROCURONIUM 50mg/5ml INJECTION IV ONE (09:21)
[2016-11-16] MEDS ORDERED: LIDOCAINE 2% (20mg/ml) 5ml PF SDV ONE (09:24)
[2016-11-16 09:27] LABS: ALBUMIN 4.3 G/DL (3.5-5.0); ALBUMIN/GLOBULIN RATIO 1.5 RATIO (1.1-2.2); ALKALINE PHOSPHATASE 130 U/L (38-126); ALT (SGPT) 33 U/L (9-52); ANION GAP 15 MEQ/L (5-15); AST (SGOT) 18 U/L (14-36); BUN/CREATININE RATIO 14 RATIO (6-26); CALCIUM 8.9 MG/DL (8.4-10.2); CHLORIDE 107 MEQ/L (98-107); CO2 - CARBON DIOXIDE 24 MEQ/L (22-30); CREATININE 0.9 MG/DL (0.7-1.2); GLOMERULAR FILTRATION RATE 64; GLUCOSE 106 MG/DL (65-110); POTASSIUM 4.1 MEQ/L (3.6-5); SODIUM 146 MEQ/L (134-144); TOTAL PROTEIN 7.2 G/DL (6.3-8.2)
[2016-11-16] MEDS ORDERED: PHENYLEPHRINE 10mg/ml INJECTION ONE (11:33)
[2016-11-16] MEDS ORDERED: SALINE FLUSH 10ml SYRINGE ONE (11:57)
[2016-11-16] MEDS ORDERED: FENTANYL 100mcg/2ml INJECTION ONE (12:14)
[2016-11-16] MEDS ORDERED: DEXAMETHASONE 4mg/ml - 1ml INJECTION ONE (12:25)
[2016-11-16] MEDS ORDERED: ONDANSETRON 4mg/2ml INJECTION ONE (12:25)
[2016-11-16] MEDS ORDERED: NEOSTIGMINE 10mg/10ml INJECTION ONE (12:41)
[2016-11-16] MEDS ORDERED: GLYCOPYRROLATE 0.4mg/2ml INJECTION ONE (12:41)
[2016-11-16] MEDS ORDERED: MELO7.5T12 PO (12:53)
[2016-11-16] MEDS ORDERED: ONDA4TAB4 PO (12:53)
[2016-11-16] MEDS ORDERED: TRAM50TA53 PO (12:53)
--- NOTE | 2016-11-16 12:56 | PDPROCED ---
Immediate Operative Note DATE: 11/16/16 TIME: 12:54 Preop Diagnosis: LEFT SHOULDER PAIN,ADHESIVE CAPSULITIS,IMPINGMENT Postop Diagnosis: Left shoulder pain, adhesive capsulitis, impingement Surgical Procedures: Other (Left shoulder arthroscopy, capsular release, sub acromial debridement) Surgeon: Cira Boiler Shop Supervisor: VIV Cruz Anesthesia: General (plus regional block) Complications: none Estimated Blood Loss see anesthesia ANN-MARIE BRUMFIELD November 16, 2016 12:56
--- NOTE | 2016-11-16 13:22 | ANESPO ---
Post-Op Note Date 11/16/16 Time: 13:21 Status Pt Participated in Evaluation: Pt participated in person Vital Signs Date Time Temp Pulse Resp B/P Pulse Ox O2 Delivery O2 Flow Rate FiO2 11/16/16 13:15 101 26 144/66 93 Nasal Cannula 2.00 11/16/16 12:49 96.9 Respiratory Function: Airway patent Cardiovascular Function: Regular pulse Pain Level Intensity: 0 Hydration: IV infusing, Nausea (very slight nausea- controlled with PRN meds. Block working well- denies pain) Complications during Recovery None apparent Follow-Up Instructions Instructions Per Surgeon JUDI TERESA CRNA November 16, 2016 13:22
[2016-11-16] MEDS ORDERED: DiphenhydrAMINE 50 MG/ML INJECTION IV ONE (13:30)
[2016-11-16] MEDS ORDERED: ONDANSETRON 4mg/2ml INJECTION IV PRN (13:30)
--- NOTE | 2016-11-17 09:29 | OPNOTEF ---
DATE OF OPERATION 11/16/2016 PREOPERATIVE DIAGNOSIS 1. Left shoulder adhesive capsulitis. POSTOPERATIVE DIAGNOSES 1. Left shoulder adhesive capsulitis. 2. Left shoulder subacromial bursitis. 3. Left shoulder degenerative type 1 superior labral tear. PROCEDURE 1. Left shoulder arthroscopic capsular release. 2. Left shoulder arthroscopic debridement, superior labrum and subacromial space. 3. Left shoulder manipulation under anesthesia. SURGEON Harsh Denis MD GLUE MILL OPERATOR Олег Chaney PA-C ANESTHESIA General with regional block. FLUIDS Please refer to Anesthesia chart. EBL Minimal. TOURNIQUET None used. COMPLICATIONS None. CONDITION Stable to recovery room. DESCRIPTION OF PROCEDURE The patient was identified in the preoperative holding area. The operative extremity was identified and appropriately marked. Risks, benefits, alternatives and potential complications were discussed and informed consent was obtained. The patient was taken to the operating theatre, placed supine on the operating table. Appropriate cardiorespiratory monitors were applied. General anesthesia was induced. The patient was positioned in a seated beach chair position with all bony prominences well padded. Head and neck were secured in a safe position. Left upper extremity was sterilely prepped and draped in the usual fashion. Surgical time-out was performed, confirmed with myself, the matcher and circulating nurse. Preoperative antibiotics were given. Examination under anesthesia revealed external rotation with the arm at the side to neutral. Forward flexion was to approximately 60 degrees, abduction to 60 as well. Internal rotation was to the lateral aspect of the hip. A standard posterior arthroscopic portal was established. The arthroscope was inserted and the glenohumeral joint was insufflated with saline. The joint was quite tight limiting access to the anterior aspect of the shoulder. . With gentle manipulation of the scope we were able to identify the rotator interval. Needle localization was utilized to identify the rotator interval and a small stab incision was created. A cannula was inserted. Following this a shaver was inserted and villous synovitis was debrided from the undersurface of the rotator interval. At this point we were able to see the upper border of the subscapularis through the capsular tissue. A radiofrequency ablation device was then inserted and the rotator interval was released in its entirety. Care was taken to avoid contact with the superior aspect of the subscapularis for preservation. The lateral margin of the coracoid was identified as well and a thorough release was performed. This allowed for immediate increased external rotation and better access to the shoulder. Inspection of the joint at this time did show some degenerative change of the glenohumeral joint with diffuse grade 2 and grade 3 change. Any loose chondral flaps were debrided. The superior labrum showed marked fraying though the biceps anchor was intact. This was debrided with a suction shaver as well. The long head biceps tendon was intact in its intraarticular and extraarticular portion once pulled into the joint. The inferior axillary recess was not accessible at this time secondary to contracture. We continued at this point with the release. Anteriorly, utilizing an arthroscopic basket forceps alternating with radiofrequency ablation device, the middle glenohumeral ligament was released. Note was made of extremely thickened capsule, particularly anterior-inferiorly. The capsule was released until muscle fibers of the subscapularis were able to be visualized beneath. This continued around to approximately the 7 o'clock position on this left shoulder. At this time the superior release was performed through the capsule above the biceps and superior labrum extending posteriorly towards the visualizing portal. The scope was then moved anteriorly and a cannula was placed posteriorly. The posterior-superior capsular release was then continued with a radiofrequency ablation device. We then continued this release posteriorly and posterior-inferior to approximately the 5:00 or 5:30 position. Care was taken inferiorly to avoid delving too deep and electrocautery was used so any stimulation of the axillary nerve would be identified. At this time the arthroscope was removed from the joint. Manipulation was then performed. We were able to obtain approximately 140 degrees of forward flexion, abduction to 120. External rotation at this time was to 75-80 degrees and internal rotation was towards the patient's L5 region though with positioning we were unable to fully assess this. Abduction to 90 degrees and internal and external rotation showed approximately 80-80. The arthroscope was then placed into the subacromial space. Fairly thickened bursitis was encountered. A lateral portal was established. A thorough bursectomy was performed to include the anterolateral and posterior gutters. Bursal inspection of the rotator cuff showed no evidence of partial-thickness or full-thickness tears. The CA ligament was mildly frayed but there appeared to be ample room in the anterior-superior aspect of the shoulder, so an acromioplasty was not performed. The shoulder was then copiously lavaged, irrigated and drained. All arthroscopic instruments were removed. Portals were closed with nylon sutures. Sterile dressings were applied followed by an abduction sling. The patient was awakened from anesthesia and taken to the recovery room in stable and satisfactory condition. [id number]
== END 2016-11-16 14:55 | disposition home or self-care (01) ==
LOC: NSC 07:19
PROVIDERS: ATTEND Orthopaedic Surgery
DX: M75.02 Adhesive capsulitis of left shoulder (principal); M75.52 Bursitis of left shoulder; S43.492A Other sprain of left shoulder joint, initial encounter; E78.00 Pure hypercholesterolemia, unspecified; I10 Essential (primary) hypertension; J44.9 Chronic obstructive pulmonary disease, unspecified; F17.210 Nicotine dependence, cigarettes, uncomplicated; Z79.899 Other long term (current) drug therapy; Z79.82 Long term (current) use of aspirin; Z79.51 Long term (current) use of inhaled steroids; Z88.0 Allergy status to penicillin; Z88.2 Allergy status to sulfonamides; Z88.8 Allergy status to other drugs, medicaments and biological substances; Z91.041 Radiographic dye allergy status; Z85.528 Personal history of other malignant neoplasm of kidney; Z90.49 Acquired absence of other specified parts of digestive tract; X58.XXXA Exposure to other specified factors, initial encounter
CPT/HCPCS: 29822; 29825; 36415; 80053; 85025; J0330; J1100; J1200; J2250; J2370; J2405; J2704; J2710; J3010; J7030